=== PATIENT | female | born 1975 | race Caucasian/White ===

== ENCOUNTER 2018-11-23 03:17 | Emergency (ER) | payer OTHER ==
[~2018-11-23] VITALS: Ht 167.6 cm; Wt 62.0 kg
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
[2018-11-23] MEDS ORDERED: MECLIZINE CHEWABLE 25 MG TAB ONE (03:47)
[2018-11-23] MEDS ORDERED: ONDANSETRON ODT 4 MG ONE (03:48)
[2018-11-23] MEDS ORDERED: ASPIRIN 81 MG TABLET CHEW ONE (03:48)
[2018-11-23] MEDS ORDERED: ONDANSETRON ODT 4 MG PO ONE (04:00)
[2018-11-23] MEDS ORDERED: MECLIZINE CHEWABLE 25 MG TAB PO ONE (04:00)
[2018-11-23] MEDS ORDERED: ASPIRIN 81 MG TABLET CHEW PO ONE (04:00)
[2018-11-23 04:04] LABS: BASOPHILS # (AUTO) 0.03 x10^3/uL (0-0.1); BASOPHILS % (AUTO) 0 % (0-1); EOSINOPHILS % (AUTO) 0 % (1-7); LYMPHOCYTES # (AUTO) 1.19 x10^3/uL (1-3.4); LYMPHOCYTES % (AUTO) 12 % (22-44); MD NO; MEAN CORPUSCULAR HGB CONC 34.5 g/dL (32.4-35.8); MEAN CORPUSCULAR VOLUME 86.9 fL (80-100); MEAN PLATELET VOLUME 7.5 fL (7.4-10.4); MONOCYTES # (AUTO) 0.45 x10^3/uL (0.2-0.8); MONOCYTES % (AUTO) 5 % (2-9); NEUTROPHILS # (AUTO) 8.07 x10^3/uL (1.8-6.8); NEUTROPHILS % (AUTO) 83 % (42-75); PLATELET COUNT 381 x10^3/uL (130-400); RED BLOOD COUNT 4.51 x10^6/uL (3.82-5.3); RED CELL DISTRIBUTION WIDTH 12.8 % (9.6-15.2)
--- NOTE | 2018-11-23 04:10 | NUR ---
pt medicated per mar.
[2018-11-23 04:11] LABS: ALBUMIN 3.9 g/dL (3.4-5.0); ANION GAP 15 mmol/L (5-15); CALCIUM 8.6 mg/dL (8.5-10.1); CHLORIDE 105 mmol/L (98-107)
[2018-11-23 04:16] LABS: CREATININE 0.59 mg/dL (0.55-1.02); TROPONIN I < 0.015 ng/mL (0.000-0.045)
[2018-11-23] MEDS ORDERED: PLEASE ENTER ALLERGIES MC SCH (04:30)
[2018-11-23 05:23] VITALS: BP 124/71
--- NOTE | 2018-11-23 05:23 | NUR ---
PT DAUGHTER CALLED PER PT REQUEST FOR RIDE. PT DAUGHTER JEFFREY EN ROUTE FROM [place] TO PICK PT UP. PT AMBULATES TO REGISTRATION DESK WITH STEADY GAIT. ALL QUESTIONS ANSWERED. PT DENIES ANY OTHER NEEDS PERTAINING TO THIS VISIT.
== END 2018-11-23 06:23 | disposition home or self-care (01) ==
LOC: ED 04:00
DX: R07.89 Other chest pain (principal); R42 Dizziness and giddiness
CPT/HCPCS: 36415; 71046; 80048; 82040; 84484; 85025; 93005; 99284; Q0162

== ENCOUNTER 2019-10-27 11:14 | Emergency (ER) | payer MEDICAID, OTHER ==
[~2019-10-27] VITALS: Ht 165.1 cm; Wt 65.0 kg
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
--- NOTE | 2019-10-27 11:44 | NUR ---
LAB AT BEDSIDE.
--- NOTE | 2019-10-27 11:50 | NUR ---
PT IS HESITANT AND NON COMPLIANT WHEN ASKED FOR UA
--- NOTE | 2019-10-27 11:50 | NUR ---
OFFICERS HAVE WARRENT FOR BLOOD DRAW
--- NOTE | 2019-10-27 12:01 | NUR ---
PT REFUSING LAB DRAW ORDERED BY CORNELIUS TODD ACQUIRED BLOOD RELATED TO WARRENT. PT ALSO HAD 3 MINUTE PSUEDO SEIZURE DURING BLOOD DRAW. NO CHANGE IN VS.
[2019-10-27 12:03] VITALS: BP 127/79
[2019-10-27 12:28] LABS: ALBUMIN 3.1 g/dL (3.4-5.0); ANION GAP 10 mmol/L (5-15); CALCIUM 8.7 mg/dL (8.5-10.1); CHLORIDE 107 mmol/L (98-107); CREATININE 0.67 mg/dL (0.55-1.02)
--- NOTE | 2019-10-27 12:30 | NUR ---
PT REFUSED CXR
--- NOTE | 2019-10-27 12:55 | NUR ---
DAUGHTER CALLED FOR INFO. PT STATES SHE WILL CONTACT DAUGHTER HERSELF. PT IS REFUSING TO VOID FOR UA
--- NOTE | 2019-10-27 13:00 | NUR ---
ENCOURAGED PT FOR UA, PT REFUSING. PROVIDER AWARE.
[2019-10-27 13:10] LABS: TROPONIN I < 0.015 ng/mL (0.000-0.045)
--- NOTE | 2019-10-27 13:29 | NUR ---
PT SIGNED AMA FORM, PT WAS RECOMENDED FOR FURTHER EVALUATION BY L&D. PT WHEELED BY MARTI TO L&D.
== END 2019-10-27 15:25 | disposition left against medical advice (07) ==
LOC: ED 13:00
DX: O99.413 Diseases of the circulatory system complicating pregnancy, third trimester (principal); R07.9 Chest pain, unspecified; Z3A.00 Weeks of gestation of pregnancy not specified
CPT/HCPCS: 36415; 80048; 80307; 82040; 84484; 93005; 99284

== ENCOUNTER 2019-10-27 13:34 | Outpatient (CLI) | payer MEDICAID | END 2019-10-27 14:44 | disposition home or self-care (01) | LOC: LDOP 13:34 | PROVIDERS: ATTEND Obstetrics & Gynecology | DX: O99.313 Alcohol use complicating pregnancy, third trimester (principal); F10.229 Alcohol dependence with intoxication, unspecified; Z3A.32 32 weeks gestation of pregnancy; Y90.9 Presence of alcohol in blood, level not specified | CPT/HCPCS: 59025; 99201; G0463 ==

== ENCOUNTER 2020-04-03 21:27 | Emergency (ER) | payer MEDICAID ==
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
== END 2020-04-03 21:39 | disposition left against medical advice (07) ==
LOC: ED 21:28
DX: R46.89 Other symptoms and signs involving appearance and behavior (principal); Z53.21 Procedure and treatment not carried out due to patient leaving prior to being seen by health care provider

== ENCOUNTER 2020-04-03 21:49 | Emergency (ER) | payer MEDICAID ==
[~2020-04-03] VITALS: Ht 162.6 cm; Wt 64.0 kg
[2020-04-03 21:57] VITALS: BP 127/88
[2020-04-03] MEDS ORDERED: ACETAMINOPHEN 500 MG TABLET ONE (23:58)
[2020-04-04] MEDS ORDERED: ACETAMINOPHEN 325 MG TABLET PO ONE
--- NOTE | 2020-04-04 00:29 | NUR ---
DRY MILL OPERATOR: PT AMBULATED STEADILY TO ROOM WITH DRY MILL OPERATOR.
[2020-04-04] MEDS ORDERED: ACETAMINOPHEN 500 MG TABLET ONE (00:31)
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
[2020-04-04] MEDS ORDERED: SODIUM CHLORIDE 0.9% 1,000ML IVBOLUS ONE (01:00)
[2020-04-04] MEDS ORDERED: ONDANSETRON 2MG/ML, 2ML IVPush ONE (01:00)
[2020-04-04] MEDS ORDERED: SODIUM CHLORIDE FLUSH 10ML SYR IVF ONE (01:00)
[2020-04-04] MEDS ORDERED: ONDANSETRON 2MG/ML, 2ML ONE ×2 (01:10→01:16)
--- NOTE | 2020-04-04 01:25 | NUR ---
BREAK RN: PT REFUSING TO KEEP MONITORING EQUIPMENT ON. IV ESTABLISHED AND LABS DRAWN AND GIVEN TO BILLERLEANA THACKER. PT MEDICATED WITH ZOFRAN IV. 5 RIGHTS ADDRESSED.
--- NOTE | 2020-04-04 01:27 | NUR ---
REPORT TO PRIMARY, KALANI MCCRAY
[2020-04-04 01:31] LABS: BASOPHILS # (AUTO) 0.03 x10^3/uL (0-0.1); BASOPHILS % (AUTO) 0 % (0-1); EOSINOPHILS # (AUTO) 0.01 x10^3/uL (0-0.4); EOSINOPHILS % (AUTO) 0 % (1-7); LYMPHOCYTES # (AUTO) 1.52 x10^3/uL (1-3.4); LYMPHOCYTES % (AUTO) 14 % (22-44); MD NO; MEAN CORPUSCULAR HGB CONC 33.8 g/dL (32.4-35.8); MEAN CORPUSCULAR VOLUME 91.9 fL (80-100); MEAN PLATELET VOLUME 7.7 fL (7.4-10.4); MONOCYTES # (AUTO) 0.19 x10^3/uL (0.2-0.8); MONOCYTES % (AUTO) 2 % (2-9); NEUTROPHILS # (AUTO) 9.26 x10^3/uL (1.8-6.8); NEUTROPHILS % (AUTO) 84 % (42-75); PLATELET COUNT 373 x10^3/uL (130-400); RED BLOOD COUNT 4.54 x10^6/uL (3.82-5.3); RED CELL DISTRIBUTION WIDTH 13.1 % (9.6-15.2)
[2020-04-04 01:43] LABS: ALBUMIN 4.5 g/dL (3.4-5.0); ANION GAP 9 mmol/L (5-15); CALCIUM 9.3 mg/dL (8.5-10.1); CHLORIDE 106 mmol/L (98-107); CREATININE 0.69 mg/dL (0.55-1.02)
--- NOTE | 2020-04-04 03:24 | NUR ---
EDDIE RN: IV REMOVED. PT STILL REFUSING TO ALLOW HER VITALS TO BE TAKEN. PROVIDED DISCHARGE PAPERWORK AND EXPLAINED IN DETAIL. PT DENIES ANY QUESTIONS OR CONCERNS AT THIS TIME. PT OFFERED A CAB VOUCHER HOWEVER REPORTS SHE HAS FAMILY SHE CAN CALL TO GIVE HER A RIDE HOME.
== END 2020-04-04 03:28 ==
LOC: ED 04-04 03:25
DX: S39.012A Strain of muscle, fascia and tendon of lower back, initial encounter (principal); R11.2 Nausea with vomiting, unspecified; R51 Headache; X58.XXXA Exposure to other specified factors, initial encounter; Y93.89 Activity, other specified; Y92.89 Other specified places as the place of occurrence of the external cause; Y99.8 Other external cause status
CPT/HCPCS: 36415; 72110; 80048; 82040; 84703; 85025; 96361; 96374; 99284; J2405; J7030